=== PATIENT | male | born 1970 | race Caucasian/White ===

== ENCOUNTER 2021-08-13 19:31 | Emergency (ER) | payer BC, OTHER ==
[2021-08-13 19:39] VITALS: BP 148/90; PULSE 76; TEMP 98.6; BMI 37.2
[2021-08-13] MEDS ORDERED: LIDOCAINE 5% TOPICAL PATCH TP ONE (20:14)
[2021-08-13] MEDS ORDERED: diazePAM 2 MG TABLET PO ONE (20:14)
[2021-08-13] MEDS ORDERED: LIDOCAINE 5% TOPICAL PATCH ONE (20:27)
[2021-08-13] MEDS ORDERED: diazePAM 2 MG TABLET ONE (20:28)
[2021-08-13] MEDS ORDERED: KETOROLAC TROMETHAMINE 15 MG/ML VIAL IM ONE (20:34)
[2021-08-13] MEDS ORDERED: KETOROLAC TROMETHAMINE 15 MG/ML VIAL ONE (20:35)
[2021-08-13] MEDS ORDERED: LIDOCAINE PATCH REMOVAL MC SCH (22:00)
== END 2021-08-13 21:36 | disposition home or self-care (01) ==
LOC: JERFT 19:31
PROC: 3E0233Z Introduction of Anti-inflammatory into Muscle, Percutaneous Approach (ICD-10-PCS; principal; 2021-08-13)
DX: M79.605 Pain in left leg (principal); M62.831 Muscle spasm of calf; S76.312A Strain of muscle, fascia and tendon of the posterior muscle group at thigh level, left thigh, initial encounter
CPT/HCPCS: 73552-TC-RT-FY; 73610-TC-RT-FY; 99284-25

== ENCOUNTER 2023-11-11 20:28 | Observation (INO) | payer BC ==
[2023-11-11 20:35] VITALS: BMI 35.4
[2023-11-11 21:02] LABS: BASO % 0.7 % (0-2.0); EOS % 2.5 % (0-4.5); HEMATOCRIT 49.7 % (35.4-49); HEMOGLOBIN 16.6 GM/dL (11.7-16.9); LYMPH % 37.3 % (8-40); MCH 28.3 pg (25.7-33.7); MCHC 33.3 g/dl (32.0-35.9); MEAN CELL VOLUME 85.1 fl (80-96); MONO % 6.6 % (3.8-10.2); NEUT % 52.9 % (42.8-82.8); RBC 5.84 M/mm3 (4.00-5.60); WHITE BLOOD COUNT 11.8 K/mm3 (4.0-10.0)
[2023-11-11 21:20] LABS: POTASSIUM 3.6 mmol/L (3.5-5.1)
[2023-11-11 21:23] LABS: ALBUMIN 3.8 g/dl (3.4-5.0); BLOOD UREA NITROGEN 12.6 mg/dL (7-18); MEAN PLT VOLUME 9.6 fl (7.5-11.1); PLATELET COUNT 198 10^3/uL (134-434); PLATELET ESTIMATE ADEQUATE
[2023-11-11 21:26] LABS: CREATININE 1.1 mg/dL (0.55-1.3)
[2023-11-11 21:27] LABS: BILIRUBIN,TOTAL 0.5 mg/dL (0.2-1); INR 0.95 (0.83-1.09); PROTHROMBIN TIME (PATIENT) 10.9 SEC (9.7-13.0); TOT PROT 8.4 g/dl (6.4-8.2)
[2023-11-11 21:30] LABS: ACTIVATED PTT 34.6 SECONDS (25.2-36.5)
[2023-11-11] MEDS ORDERED: amLODIPine BESYLATE 5 MG TABLET (FP) ONE (22:32)
[2023-11-11] MEDS ORDERED: ASPIRIN 81 MG CHEWABLE TABLETS ONE (22:33)
[2023-11-11] MEDS: amLODIPine BESYLATE 5 MG TABLET (FP) PO ONE (22:36)
[2023-11-11] MEDS: ASPIRIN 81 MG CHEWABLE TABLETS PO ONE (22:36)
[2023-11-11] MEDS ORDERED: DOCUSATE SODIUM 100 MG CAPSULE (FP) PO PRN (23:42)
[2023-11-11] MEDS ORDERED: ACETAMINOPHEN 325 MG TABLET (FP) PO PRN (23:42)
[2023-11-12 01:10] LABS: PHOSPHOROUS 3.7 mg/dL (2.5-4.9)
[2023-11-12 07:23] LABS: BASO % 0.4 % (0-2.0); HEMATOCRIT 47.6 % (35.4-49); HEMOGLOBIN 16.4 GM/dL (11.7-16.9); LYMPH % 37.9 % (8-40); MCH 29.1 pg (25.7-33.7); MCHC 34.6 g/dl (32.0-35.9); MEAN CELL VOLUME 84.2 fl (80-96); MEAN PLT VOLUME 9.5 fl (7.5-11.1); MONO % 7.3 % (3.8-10.2); NEUT % 50.4 % (42.8-82.8); PLATELET COUNT 169 10^3/uL (134-434); RBC 5.65 M/mm3 (4.00-5.60); RDW 14.1 % (11.9-15.9)
[2023-11-12 09:59] LABS: URINE APPEARANCE TURBID; URINE BILIRUBIN NEGATIVE (NEGATIVE); URINE COLOR YELLOW; URINE GLUCOSE (UA) NEGATIVE (NEGATIVE); URINE KETONE NEGATIVE (NEGATIVE); URINE LEUK ESTERASE NEGATIVE (NEGATIVE); URINE NITRITE NEGATIVE (NEGATIVE); URINE PROTEIN TRACE (NEGATIVE)
[2023-11-12] MEDS: ASPIRIN COATED 81 MG TABLET.EC PO SCH (16:35)
[2023-11-12] MEDS: ATORVASTATIN CA 80 MG TABLET (FP) PO SCH (21:37)
[2023-11-12 23:41] VITALS: RESP 18
[2023-11-13 07:49] LABS: BASO % 0.4 % (0-2.0); EOS % 2.8 % (0-4.5); HEMATOCRIT 49.7 % (35.4-49); HEMOGLOBIN 16.7 GM/dL (11.7-16.9); LYMPH % 29.6 % (8-40); MCH 28.4 pg (25.7-33.7); MCHC 33.6 g/dl (32.0-35.9); MEAN CELL VOLUME 84.7 fl (80-96); MEAN PLT VOLUME 9.5 fl (7.5-11.1); MONO % 6.2 % (3.8-10.2); PLATELET COUNT 177 10^3/uL (134-434); RBC 5.87 M/mm3 (4.00-5.60); RDW 13.9 % (11.9-15.9); WHITE BLOOD COUNT 9.7 K/mm3 (4.0-10.0)
[2023-11-13 08:14] LABS: CALCIUM 8.6 mg/dL (8.5-10.1)
[2023-11-13 08:15] LABS: ALBUMIN 3.3 g/dl (3.4-5.0); BLOOD UREA NITROGEN 14.5 mg/dL (7-18)
[2023-11-13 08:18] LABS: CREATININE 0.8 mg/dL (0.55-1.3)
[2023-11-13 08:19] LABS: BILIRUBIN,TOTAL 0.7 mg/dL (0.2-1); TOT PROT 7.6 g/dl (6.4-8.2)
[2023-11-13 08:23] LABS: N-TERMINAL BNP 32.1 pg/ml (5-125)
[2023-11-13] MEDS: amLODIPine BESYLATE 5 MG TABLET (FP) PO ONE (10:06)
[2023-11-13] MEDS: LISINOPRIL 20 MG TABLET PO ONE (11:21)
[2023-11-13 15:02] VITALS: BP 149/91; PULSE 82; TEMP 97.9
[2023-11-13] MEDS: metFORMIN HCL 500 MG TABLET (FP) PO SCH (16:43)
[2023-11-13] MEDS ORDERED: ATORVASTATIN CA 40 MG TABLET (FP) PO SCH (22:00)
[2023-11-14] MEDS ORDERED: LISINOPRIL 20 MG TABLET PO SCH (10:00)
[2023-11-14] MEDS ORDERED: amLODIPine BESYLATE 5 MG TABLET (FP) PO SCH (10:00)
== END 2023-11-13 17:55 | disposition home or self-care (01) ==
LOC: JER 20:28 → JERBED 22:04 → J4S 11-12 14:26
PROVIDERS: ADMIT Internal Medicine; ATTEND Internal Medicine
DX: I16.0 Hypertensive urgency (principal); R73.03 Prediabetes; E66.9 Obesity, unspecified; E78.5 Hyperlipidemia, unspecified; F17.210 Nicotine dependence, cigarettes, uncomplicated; Z91.148 Patient's other noncompliance with medication regimen for other reason
CPT/HCPCS: 36415; 70450-TC; 70551-TC; 71045-TC-FY; 80053; 80061; 81003; 82962; 83036; 83735; 83880; 84100; 84439; 84443; 84484; 85025; 85610; 85730; 86850; 86900; 86901; 93005; 93010; 93306-TC; 93880-TC; 97116-GP; 97161-GP; 99285-25; G0378